=== PATIENT | female | born 1990 | race Caucasian/White ===

== ENCOUNTER 2018-01-31 08:05 | Inpatient (IN) ==
[2018-01-31] MEDS ORDERED: ePHEDrine Inj 5 MG in Normal Saline Flush 1 ML IVP PRN (08:07)
[2018-01-31] MEDS ORDERED: ONDANSETRON 4 MG/2 ML VIAL IVP PRN ×2 (08:07→17:29)
[2018-01-31] MEDS ORDERED: MISOPROSTOL 200 MCG TABLET RECTAL PRN (08:07)
[2018-01-31] MEDS ORDERED: OXYTOCIN 10 UNIT/1 ML IM PRN (08:07)
[2018-01-31] MEDS ORDERED: fentaNYL Inj 100 MCG/2 ML VIAL IV PRN (08:07)
[2018-01-31] MEDS ORDERED: METHYLERGONOVINE MALEATE 0.2 MG/1 ML VIAL IM PRN (08:07)
[2018-01-31] MEDS ORDERED: CefOXitin Inj 2 GM in Sodium Chloride 0.9% 100 ML IV PRN (08:07)
[2018-01-31] MEDS ORDERED: diphenhydrAMINE 50 MG/1 ML VIAL IVP PRN ×2 (08:07→17:29)
[2018-01-31] MEDS ORDERED: Lidocaine 1% 10 MG/ML - 20 ML VIAL SUBCUT PRN (08:07)
[2018-01-31] MEDS ORDERED: LIDOCAINE W/ SODIUM BICARB 0.5 ML SYR SUBD PRN (08:07)
[2018-01-31] MEDS ORDERED: NALOXONE 0.4 MG/1 ML VIAL IVP PRN (08:07)
[2018-01-31] MEDS ORDERED: Naloxone Inj 0.01 MG in Normal Saline Flush 1 ML IVP PRN (08:07)
[2018-01-31] MEDS ORDERED: Carboprost Inj 250 MCG/ML AMP IM PRN (08:07)
[2018-01-31] MEDS ORDERED: Phenylephrine Inj 50 MCG in Normal Saline Flush 0.5 ML IVP PRN (08:07)
[2018-01-31] MEDS ORDERED: FAMOTIDINE 20 MG/2 ML VIAL IVP PRN ×2 (08:07)
[2018-01-31] MEDS ORDERED: TERBUTALINE SULFATE 1 MG/1 ML SDV SUBCUT PRN (08:07)
[2018-01-31] MEDS ORDERED: Metoclopramide Inj 10 MG/2 ML VIAL IV PRN (08:07)
[2018-01-31] MEDS ORDERED: CALCIUM CARBONATE 500 MG (TUMS) CHEWABLE TABLET PO PRN ×2 (08:07→17:29)
[2018-01-31] MEDS ORDERED: CITRIC ACID/SODIUM CITRATE 30 ML CUP PO PRN (08:07)
[2018-01-31] MEDS ORDERED: LIDOCAINE HCL 2 % 10 ML JELLY URO-JECT TOPICAL PRN ×2 (08:07→17:29)
[2018-01-31] MEDS ORDERED: Nalbuphine Inj 20 MG/ML Ampule IVP PRN ×2 (08:07→17:29)
[2018-01-31] MEDS ORDERED: BUTORPHANOL TARTRATE 2 MG/1 ML VIAL IVP PRN (08:07)
[2018-01-31] MEDS ORDERED: Oxytocin 20 Units + LR 20 UNIT/1,000 ML BAG IV SCH ×3 (08:15→17:29)
[2018-01-31 08:40] LABS: Hematocrit [HCT] 35.5 % (37.0-47.0); Hemoglobin [HGB] 12.3 g/dL (12.0-16.0); MEAN CORPUSCULAR HEMOGLOBIN 31.1 PG (27-31); MEAN CORPUSCULAR HGB CONC 34.6 g/dL (33-37); MEAN CORPUSCULAR VOLUME 89.9 FL (81-99); RED BLOOD COUNT 3.95 10^6/uL (4.20-5.40)
[2018-01-31] MEDS: Lactated Ringers-OB Dept 1,000 ML PRIMARY IV SCH ×5 (08:53→18:47)
[2018-01-31] MEDS ORDERED: Fent/Bupiv 2mcg/0.0625% Epid 250 ML ONE (08:53)
[2018-01-31] MEDS ORDERED: ePHEDrine Inj 50 MG/ML AMP ONE (08:54)
[2018-01-31] MEDS ORDERED: PHENYLEPHRINE 10,000 MCG/1 ML VIAL ONE (09:21)
[2018-01-31] MEDS ORDERED: Sodium Chloride 0.9% vial 10 ML ONE (09:21)
--- NOTE | 2018-01-31 09:29 | CRNA.PROCE ---
Central Neuraxis Block Placemt - - Safety Measures: Time Out Taken - - Type of Block: Epidural Reason for Block: Analgesia Moniters Used During Block: SPO2, NIBP Positioning: Sitting Skin Prep Used: ChloroPrep Draped: Yes Skin Infiltration - Enter Amount Used in Comment Field: 1% Xylocaine (mL): Yes ( skin wheal) Spinal Needle Used: 18 Hustead 80 mm Local Anesthetic - Enter Amount Used in Comment Field: 1.5 % Xylocaine with Epinephrine 1:200,000 (mL): Yes (5ml) Number of Centimeters Catheter Threaded: 4 Bioclusive Dressing Applied: Yes
[2018-01-31] MEDS ORDERED: fentaNYL 2 MCG/BUPIVACAINE 0.0625%/NS 0.9% 250 ML BAG EPIDURAL SCH (09:30)
[2018-01-31] MEDS ORDERED: EPHEDRINE IVP PRN ×2 (09:34)
[2018-01-31] MEDS ORDERED: NORMAL SALINE FLUSH IVP PRN (09:34)
[2018-01-31] MEDS ORDERED: SODIUM CHLORIDE 0.9% IVP PRN ×2 (09:34)
[2018-01-31] MEDS ORDERED: PHENYLEPHRINE IVP PRN (09:34)
--- NOTE | 2018-01-31 09:39 | CRNA.PROGR ---
Anesthesia Time - Procedure/Recovery Time Start Date: 01/31/18 Anesthesia : Time In: 09:00 - Other Physical Status: P2 Obstetrics: Planned vaginal delivery w/ neuraxial labor anesthesia/analog
--- NOTE | 2018-01-31 10:13 | OB.PROGRES ---
Date of Service: 01/31/18 Interval History: This 27 yo P3 female was admitted at 39 weeks this AM for elective induction of labor. She is currently on pitocin with epidural in place. Amniotomy was performed with an amniohook with return of scant clear fluid. FSE was applied secondary to spotty recording with the external monitor. Cervix 3/75%/-3/soft/ mid. Anticipate . Objective - Labs CBC and BMP: 01/31/18 08:38
--- NOTE | 2018-01-31 16:57 | OB.DEL.SUM ---
Delivery Note Delivery Summary: After amniotomy, with epidural in place, IUPC was placed to allow for accurate titration of pitocin drip. With appropriate increase in pitocin rate, she progressed into active labor and achieved complete dilation. She pushed for a short time to of a viable female infant, Apgars 9/9, over a small vaginal skid ha posteriorly, from OA position. Cord clamping was delayed for 45 seconds. The placenta delivered promptly, intact, with a 3 vessel cord. EBL 250 ml. Repair of the skid ha was accomplished with a single figure of eight with 3-0 Vicryl Rapide suture. Mother and baby tolerated delivery well. There were no complications.
[2018-01-31] MEDS ORDERED: Ondansetron ODT Tab 4 MG TAB PO PRN (17:29)
[2018-01-31] MEDS ORDERED: DIPH,PERTUSS,TET(ADACEL) VAC/PF 0.5 ML (Tdap) IM ONE (17:29)
[2018-01-31] MEDS ORDERED: ACETAMINOPHEN 325 MG TABLET PO PRN (17:29)
[2018-01-31] MEDS ORDERED: diphenhydrAMINE 25 MG CAPSULE PO PRN (17:29)
[2018-01-31] MEDS ORDERED: GLYCERIN/WITCH HAZEL 1 BOX TOPICAL PRN (17:29)
[2018-01-31] MEDS ORDERED: BENZOCAINE/MENTHOL SPRAY 56 GM BOTTLE TOPICAL PRN (17:29)
[2018-01-31] MEDS ORDERED: LANOLIN HPA 40 GM TUBE TOPICAL PRN (17:29)
[2018-01-31] MEDS: DOCUSATE 100 MG CAPSULE PO SCH (20:55)
[2018-01-31] MEDS: IBUPROFEN 800 MG TABLET PO PRN (23:29)
[2018-02-01 04:44] LABS: Hematocrit [HCT] 35.8 % (37.0-47.0); MEAN CORPUSCULAR HEMOGLOBIN 30.6 PG (27-31); MEAN CORPUSCULAR HGB CONC 33.5 g/dL (33-37); MEAN CORPUSCULAR VOLUME 91.3 FL (81-99); MEAN PLATELET VOLUME 9.6 FL (7.4-12.2); RED BLOOD COUNT 3.92 10^6/uL (4.20-5.40)
[2018-02-01] MEDS: IBUPROFEN 800 MG TABLET PO PRN ×2 (07:32→16:11)
[2018-02-01] MEDS: HYDROcodone-APAP 5 MG -325 MG TABLET PO PRN ×2 (07:32→14:04)
[2018-02-01 08:02] VITALS: TEMP 97.7
--- NOTE | 2018-02-01 08:22 | DCSUMMARY ---
Hospitalization Summary Admit Date: 01/31/18 Discharge Date: 02/01/18 Primary Diagnosis:: Term , Delivered Delivery Type: Vaginal Hospital Course: Uncomplicated induction of labor at 39 weeks. Labor, delivery, and course were uncomplicated. The patient was discharged to home on PPD 1 in good condition. F/u 6 weeks. / Postop Complications: None Complications: None Exam - Vitals Vital Signs: Vital Signs Temperature 97.7 F Temperature Source Oral Pulse Rate [Pulse Oximeter] 81 Pulse Rate 56 Respiratory Rate 18 Blood Pressure [Right Arm] 124/56 Blood Pressure 114/51 Pulse Ox 100 Oxygen Delivery Method Room Air Height 5 ft 4 in Weight 163 lb 6 oz
--- NOTE | 2018-02-01 08:23 | OB.PROGRES ---
Subjective Post Day: 1 Pain Management: PO Gomez Catheter: No Flatus: Yes Lochia Color: Rubra/Red Small 10-25 ml Diet: Regular Feeding Method: Exculsively Ambulating: Yes Concerns / Additional Information: Doing well with no complaints. Would like to go home today. Assesstment / Plan Assessment / Plan: PPD 1, doing well. Discharge to home.
[2018-02-01] MEDS: DOCUSATE 100 MG CAPSULE PO SCH (08:30)
[2018-02-01] MEDS ORDERED: Prenatal Multivitamin Tab 1 TAB TAB PO SCH (09:00)
[2018-02-01 13:21] VITALS: BP 114/65; RESP 16; O2SAT 97
== END 2018-02-01 20:00 | disposition home or self-care (01) | DRG 775 ==
LOC: OBIP 08:05
PROVIDERS: ADMIT Obstetrics & Gynecology; ATTEND Obstetrics & Gynecology